=== PATIENT | female | born 1985 ===

== ENCOUNTER 2017-08-05 09:22 | Emergency (ER) | payer BC ==
[2017-08-05 09:39] VITALS: BP 127/77; PULSE 90; RESP 18; TEMP 98; O2SAT 99
[2017-08-05] MEDS ORDERED: Lidocaine 5% Patch TD STA (10:56)
--- NOTE | 2017-08-05 11:20 | ED PDOC ---
HPI: General Adult Time Seen by Provider: 08/05/17 10:23 Chief Complaint (Nursing): Back Pain History Per: Patient Additional Complaint(s): Pt. states was coming into work today and when she was in the parking lot she slipped and fell. Pt. states she landed in a sitting position and is currently c /o pain to her tailbone area. Denies numbness, tingling, head injury, leg pain, hip/pelvic pain, vaginal bleeding. LMP: "last week" Past Medical History Reviewed: Historical Data, Nursing Documentation, Vital Signs Vital Signs: Last Vital Signs Temp 98.0 F 08/05/17 09:37 Pulse 90 08/05/17 09:37 Resp 18 08/05/17 09:37 BP 127/77 08/05/17 09:37 Pulse Ox 99 08/05/17 11:20 - Family History Family History: States: No Known Family Hx - Immunization History Hx Tetanus Toxoid Vaccination: No Hx Influenza Vaccination: No Hx Pneumococcal Vaccination: No - Home Medications Home Medications: Ambulatory Orders Medication Instructions Recorded Clindamycin [Cleocin] 300 mg PO TID #15 04/11/15 DiphenhydrAMINE [Benadryl] 25 mg PO Q8 PRN #10 cap 04/11/15 Prednisone 50 mg PO DAILY #2 tab 04/11/15 Cyclobenzaprine [Cyclobenzaprine 10 mg PO Q8 PRN #10 tab 08/05/17 HCl] Naproxen [Naprosyn] 500 mg PO BID PRN #10 tab 08/05/17 - Allergies Allergies/Adverse Reactions: Allergies Allergy/AdvReac Type Severity Reaction Status Date / Time No Known Allergies Allergy Verified 04/11/15 08:29 Review of Systems ROS Statement: Except As Marked, All Systems Reviewed And Found Negative Musculoskeletal: Positive for: Back Pain Physical Exam - Physical Exam Appears: Positive for: Well, Non-toxic, No Acute Distress Skin: Positive for: Normal Color, Warm. Negative for: Rash Eye Exam: Positive for: Normal appearance Gastrointestinal/Abdominal: Positive for: Normal Exam, Soft. Negative for: Tenderness Back: Positive for: Normal Inspection, Vertebral Tenderness (coccygeal tenderness; no mid-line lumbar tenderness). Negative for: L CVA Tenderness, R CVA Tenderness Extremity: Positive for: Normal ROM, Other (no hip or pelvic tenderness b/l) Neurologic/Psych: Positive for: Alert, Oriented. Negative for: Aphasia, Facial Droop - ECG O2 Sat by Pulse Oximetry: 99 - Progress ED Course And Treament: LS, coccygeal x-ray, toradol 15mg IM, lidoderm ordered. Re-evaluation Time: 12:31 Condition: Re-examined, Improving,but remains with symptoms Disposition - Clinical Impression Clinical Impression: Back contusion - Patient ED Disposition Is Patient to be Admitted: No - Disposition Disposition: Routine/Home Disposition Time: 12:35 Condition: IMPROVED Prescriptions: Cyclobenzaprine [Cyclobenzaprine HCl] 10 mg PO Q8 PRN #10 tab PRN Reason: Muscle Spasm Naproxen [Naprosyn] 500 mg PO BID PRN #10 tab PRN Reason: Pain Instructions: Contusion (DC), Low Back Pain in Adults Forms: [facility] (French), [facility] ED School/Work Excuse
--- NOTE | 2017-08-05 12:29 | RAD ---
PROCEDURE: Radiographs of the Sacrum and Coccyx HISTORY: trauma COMPARISON: None available. TECHNIQUE: Frontal and lateral views of the sacrum and coccyx FINDINGS: BONES: Sacrum and coccyx unremarkable. No fracture or focal lesion. SACROILIAC JOINTS: Unremarkable. OTHER FINDINGS: None. IMPRESSION: Unremarkable radiographs of the sacrum and coccyx.
--- NOTE | 2017-08-05 12:29 | RAD ---
PROCEDURE: Radiographs of the Lumbar Spine. HISTORY: trauma COMPARISON: No prior. FINDINGS: BONES: Normal alignment. No listhesis. No fracture. DISC SPACES: Unremarkable. OTHER FINDINGS: Prominent amount of retained colonic stool. IMPRESSION: Unremarkable radiographs of the lumbar spine.
== END 2017-08-05 13:31 | disposition home or self-care (01) ==
LOC: H.ER 09:22
DX: S30.0XXA Contusion of lower back and pelvis, initial encounter (principal); W01.0XXA Fall on same level from slipping, tripping and stumbling without subsequent striking against object, initial encounter; Y92.481 Parking lot as the place of occurrence of the external cause
CPT/HCPCS: 72100; 72220; 81025; 96372; 99282; J1885

== ENCOUNTER 2018-04-04 09:28 | Emergency (ER) | payer OTHER ==
[2018-04-04 09:30] VITALS: BMI 33.7
[2018-04-04 09:32] VITALS: BP 116/78; PULSE 64; RESP 17; TEMP 99.1; O2SAT 100
--- NOTE | 2018-04-04 09:51 | ED PDOC ---
HPI: General Adult Time Seen by Provider: 04/04/18 09:37 Chief Complaint (Provider): bilateral eye redness, tiching and irritation History Per: Patient History/Exam Limitations: no limitations Onset/Duration Of Symptoms: Hrs (this morning) Additional Complaint(s): Elana Jonas is a 32 year old female, with no significant past medical history, who was referred to the emergency department by [facility] for b ilateral eye redness, itching and irritation ongoing for x2 days. Patient states she has noticed yellow crusting when waking up. She denies any injuries or other medical complaints. PMD: None provided. Past Medical History Reviewed: Historical Data, Nursing Documentation, Vital Signs Vital Signs: Last Vital Signs Temp 99.1 F 04/04/18 09:30 Pulse 64 04/04/18 09:30 Resp 17 04/04/18 09:30 BP 116/78 04/04/18 09:30 Pulse Ox 100 04/04/18 09:30 - Medical History PMH: No Chronic Diseases - Surgical History Surgical History: No Surg Hx - Family History Family History: States: Unknown Family Hx - Immunization History Hx Tetanus Toxoid Vaccination: No Hx Influenza Vaccination: No Hx Pneumococcal Vaccination: No - Home Medications Home Medications: Ambulatory Orders Medication Instructions Recorded DiphenhydrAMINE [Benadryl] 25 mg PO Q8 PRN #10 cap 04/11/15 RX: Clindamycin [Cleocin] 300 mg PO TID #15 04/11/15 RX: Prednisone 50 mg PO DAILY #2 tab 04/11/15 Cyclobenzaprine [Cyclobenzaprine 10 mg PO Q8 PRN #10 tab 08/05/17 HCl] RX: Naproxen [Naprosyn] 500 mg PO BID PRN #10 tab 08/05/17 Tobramycin 0.3% [Tobramycin 5 Ml] 1 drop OP TID #1 bottle 04/04/18 - Allergies Allergies/Adverse Reactions: Allergies Allergy/AdvReac Type Severity Reaction Status Date / Time No Known Allergies Allergy Verified 04/11/15 08:29 Review of Systems ROS Statement: Except As Marked, All Systems Reviewed And Found Negative Eyes: Positive for: Redness (itching and irritation b/l ) Physical Exam - Reviewed Nursing Documentation Reviewed: Yes Vital Signs Reviewed: Yes - Physical Exam Appears: Positive for: No Acute Distress Head Exam: Positive for: ATRAUMATIC, NORMAL INSPECTION, NORMOCEPHALIC Skin: Positive for: Normal Color, Warm, Dry Eye Exam: Positive for: EOMI, PERRL, Conjunctival injection (conjunctival and sclera mildly injected. No discharge noted) ENT: Positive for: Normal ENT Inspection Neck: Positive for: Normal, Painless ROM Cardiovascular/Chest: Positive for: Regular Rate, Rhythm. Negative for: Murmur Respiratory: Positive for: Normal Breath Sounds. Negative for: Respiratory Distress Extremity: Positive for: Normal ROM (upper and lower extremities). Negative for: Deformity, Swelling Neurologic/Psych: Positive for: Alert, Oriented - ECG O2 Sat by Pulse Oximetry: 100 (RA) Pulse Ox Interpretation: Normal Medical Decision Making Medical Decision Making: Time: 09:37 Initial Plan: --Reevaluation Scribe Attestation: Documented by Alejandro Escalante, acting as a scribe for London Briscoe MD. Provider Scribe Attestation: All medical record entries made by the Scribe were at my direction and personally dictated by me. I have reviewed the chart and agree that the record accurately reflects my personal performance of the history, physical exam, medical decision making, and the department course for this patient. I have also personally directed, reviewed, and agree with the discharge instructions and disposition. Disposition - Clinical Impression Clinical Impression: Conjunctivitis - Patient ED Disposition Is Patient to be Admitted: No Counseled Patient/Family Regarding: Diagnosis, Need For Followup, Rx Given - Disposition Disposition: Routine/Home Disposition Time: 10:00 Condition: FAIR Prescriptions: Tobramycin 0.3% [Tobramycin 5 Ml] 1 drop OP TID #1 bottle Instructions: Conjunctivitis ([place]) Forms: [facility] ED School/Work Excuse
== END 2018-04-04 09:53 | disposition home or self-care (01) ==
LOC: H.ER 09:28
DX: H10.9 Unspecified conjunctivitis (principal)